=== PATIENT | female | born 1955 | race African-American/Black ===

== ENCOUNTER 2017-03-09 19:45 | Emergency (ER) | payer OTHER ==
[2017-03-09 20:25] VITALS: BP 138/81; PULSE 86; TEMP 98.6; BMI 35.5
[2017-03-09] MEDS ORDERED: diazePAM 5 MG TABLET PO ONE (20:59)
[2017-03-09] MEDS ORDERED: diazePAM 5 MG TABLET ONE (21:00)
--- NOTE | 2017-03-09 21:21 | PDOC ---
History of Present Illness - General Chief Complaint: Psychiatric Stated Complaint: ANXIETY ATTACK Time Seen by Provider: 03/09/17 20:58 History Source: Patient Exam Limitations: No Limitations - History of Present Illness Initial Comments: 03/09/17 20:53 61-year-old female presents to the ED with complaints of increased anxiety secondary to her TMJ. Patient states was diagnosed earlier this year with TMJ had a retainer that she is supposed to be wearing at night secondary to severe grinding which she states does not feel comfortable wearing and now requires prosthetic teeth to her back molars. Patient states took 0.25 of Xanax secondary to anxiety and although she is able to move her jaw slightly it causes discomfort. Patient has a follow-up appointment with the dentist next week. Timing/Duration: intermittent Severity: mild Associated Symptoms: reports: denies symptoms Past History - Past Medical History Allergies/Adverse Reactions: Allergies Allergy/AdvReac Type Severity Reaction Status Date / Time naproxen [From Naprosyn] AdvReac Mild Vomiting Verified 03/09/17 20:25 Home Medications: Ambulatory Orders Levothyroxine [Synthroid -] 125 mcg PO DAILY 01/07/14 Rosuvastatin Calcium [Crestor] 20 mg PO HS 01/07/14 Nebivolol HCl [Bystolic] 10 mg PO DAILY 07/13/15 Zolpidem Tartrate [Ambien] 10 mg PO HS 07/15/15 Fluoxetine HCl [Prozac] 20 mg PO DAILY 02/01/16 Anemia: No Asthma: No Cancer: No Cardiac Disorders: No CVA: No COPD: No CHF: No Dementia: No Diabetes: No GI Disorders: No Disorders: No HTN: No Hypercholesterolemia: Yes Liver Disease: No Psychiatric Problems: Yes Seizures: No Thyroid Disease: Yes - Surgical History Abdominal Surgery: No Appendectomy: No Cardiac Surgery: No Cholecystectomy: No Lung Surgery: No Neurologic Surgery: No Orthopedic Surgery: No - Psycho/Social/Smoking Cessation Hx Anxiety: Yes Suicidal Ideation: No Smoking Status: No Smoking History: Never smoked Have you smoked in the past 12 months: No Number of Cigarettes Smoked Daily: 0 If you are a former smoker, when did you quit?: 14 years ago Information on smoking cessation initiated: No Hx Alcohol Use: No Drug/Substance Use Hx: No Substance Use Type: None Hx Substance Use Treatment: No Patient Lives Alone: No Lives with/in: spouse/SO Review of Systems - Review of Systems Able to Perform ROS?: Yes Constitutional: No: Symptoms Reported HEENTM: Yes: Other Respiratory: No: Symptoms reported Cardiac (ROS): No: Symptoms Reported ABD/GI: No: Symptoms Reported : No: Symptoms Reported Musculoskeletal: No: Symptoms Reported Integumentary: No: Symptoms Reported Neurological: No: Symptoms reported Psychiatric: Yes: Anxiety *Physical Exam - Vital Signs Last Vital Signs Temp Pulse Resp BP Pulse Ox 98.6 F 86 18 138/81 100 03/09/17 20:21 03/09/17 20:21 03/09/17 20:21 03/09/17 20:21 03/09/17 20:21 - Physical Exam General Appearance: Yes: Nourished, Appropriately Dressed. No: Apparent Distress HEENT: positive: EOMI, DIANA, Other (Limited range of motion with lateral movement of lower mandible and full extension of lower mandible) Neck: positive: Supple. negative: Tender, Decreased range of motion Integumentary: positive: Normal Color, Warm, Moist Neurologic: positive: Motor Strength 5/5 (ambulatory) ED Treatment Course - Medications Given in the ED: ED Medications Discontinued Medications Generic Name Dose Route Start Last Admin Trade Name Freq PRN Reason Stop Dose Admin Diazepam 5 mg 03/09/17 20:59 03/09/17 21:02 Valium - PO 03/09/17 21:00 5 mg ONCE ONE Administration Medical Decision Making - Medical Decision Making 03/09/17 20:57 Patient with diagnosis of TMJ as per dentist who recommended she wear retainers throughout the day and at night but refuses to wear them. Patient states symptoms began this morning and worsened as the day went on. Patient states took that at prior to arrival which seemed to alleviate her symptoms slightly but not completely. Patient states responds well with muscle relaxers But has not home. Patient on exam had noted limited range of motion of lower mandible. Patient ordered for 5 mg of Valium and will reevaluate shortly. 03/09/17 21:49 Patient states feeling much better and able to open her mouth completely with full range of motion of mandible. Patient will be discharged home with Valium and told to wear her retainers. *DC/Admit/Observation/Transfer Diagnosis at time of Disposition: TMJ (temporomandibular joint disorder), Anxiety - Discharge Dispostion Disposition: HOME Condition at time of disposition: Improved - Referrals Referrals: Emery Scott MD [Primary Care Provider] - - Patient Instructions Printed Discharge Instructions: TMJ Syndrome (Alternative Therapy), DI for Temporomandibular Disorder Additional Instructions: I recommend that you keep Valium with you at all times if your symptoms get to the point that you're unable to move Jaw to prevent other symptoms such as anxiety. You do need to wear your retainers as recommended by the dentist and please follow-up as scheduled.
== END 2017-03-09 23:00 | disposition home or self-care (01) ==
LOC: JERFT 19:45 → SUPCPDRO 19:45 → JERFT 22:59
DX: M26.609 Unspecified temporomandibular joint disorder, unspecified side (principal); F41.9 Anxiety disorder, unspecified; E78.00 Pure hypercholesterolemia, unspecified
CPT/HCPCS: 99281-25

== ENCOUNTER 2017-05-04 17:08 | Emergency (ER) | payer OTHER ==
[2017-05-04 17:15] VITALS: BMI 32.3
--- NOTE | 2017-05-04 17:58 | PDOC ---
Attending Attestation - Resident Resident Name: Christiano Abbasi - ED Attending Attestation I have performed the following: I have examined & evaluated the patient, The case was reviewed & discussed with the resident, I agree w/resident's findings & plan, Exceptions are as noted - HPI HPI: 61 yo F history carpal tunnel syndrome, anxiety, TMJ presents with exacerbation of her TMJ as well as pain and numbness in her hands. She states that the numbness was similar to her carpal tunnel symptoms in the past (she was diagnosed in one hand in the past, was supposed to follow up outpatient recently for symptoms bilaterally now). She also states that she developed cramping in her hands today, noticed that they looked like claws temporarily. She is uncertain if she was hyperventilating at the time, but felt anxious. She has also recently had TMJ symptoms. - Physicial Exam PE: GENERAL: Awake, alert, and fully oriented, in no acute distress HEAD: No signs of trauma EYES: PERRLA, EOMI, sclera anicteric, conjunctiva clear ENT: Auricles normal inspection, hearing grossly normal, nares patent, oropharynx clear without exudates. Moist mucosa NECK: Normal ROM, supple, no lymphadenopathy, JVD, or masses LUNGS: Breath sounds equal, clear to auscultation bilaterally. No wheezes, and no crackles HEART: Regular rate and rhythm, normal S1 and S2, no murmurs, rubs or gallops ABDOMEN: Soft, nontender, normoactive bowel sounds. No guarding, no rebound. No masses EXTREMITIES: Normal range of motion, no edema. No clubbing or cyanosis. No cords, erythema, or tenderness NEUROLOGICAL: Cranial nerves II through XII grossly intact. Normal speech, normal gait. Motor intact. Sensation to pinprick intact B/L. SKIN: Warm, Dry, normal turgor, no rashes or lesions noted. - Medical Decision Making Pt reassured, encouraged to f/u with ortho for her carpal tunnels. Labs sent to check Ca and K.
--- NOTE | 2017-05-04 18:47 | PDOC ---
History of Present Illness - General Chief Complaint: CVA/TIA Stated Complaint: NUMBNESS TO BOTH HANDS Time Seen by Provider: 05/04/17 17:33 - History of Present Illness Initial Comments: 05/04/17 18:42 Ms. Jaffe is a 61 year old female with a significant past medical history of carpal tunnel syndrome, anxiety, and TMJ who presents to the emergency department with a 2 week history of tingling in both of her hands. The patient denies chest pain, shortness of breath, headache and dizziness. Denies fever, chills, nausea, vomit, diarrhea and constipation. Denies dysuria, frequency, urgency and hematuria. Allergies: Naproxen Past surgical history: Social history: Denies alcohol / tobacco PMD - Emery Scott 05/04/17 18:45 Past History - Past Medical History Allergies/Adverse Reactions: Allergies Allergy/AdvReac Type Severity Reaction Status Date / Time naproxen [From Naprosyn] AdvReac Mild Vomiting Verified 05/04/17 17:10 Home Medications: Ambulatory Orders Levothyroxine [Synthroid -] 125 mcg PO DAILY 01/07/14 Rosuvastatin Calcium [Crestor] 20 mg PO HS 01/07/14 Nebivolol HCl [Bystolic] 20 mg PO DAILY 07/13/15 Zolpidem Tartrate [Ambien] 10 mg PO HS 07/15/15 Alprazolam [Xanax] 0.5 mg PO PRN 05/04/17 Cyclobenzaprine HCl [Flexeril -] 10 mg PO PRN 05/04/17 Anemia: No Asthma: No Cancer: No Cardiac Disorders: No CVA: No COPD: No CHF: No Dementia: No Diabetes: No GI Disorders: No Disorders: No HTN: Yes Hypercholesterolemia: Yes Liver Disease: No Psychiatric Problems: Yes (anxiety) Seizures: No Thyroid Disease: Yes - Surgical History Abdominal Surgery: No Appendectomy: No Cardiac Surgery: No Cholecystectomy: No Lung Surgery: No Neurologic Surgery: No Orthopedic Surgery: No - Immunization History Immunization Up to Date: Yes - Psycho/Social/Smoking Cessation Hx Anxiety: Yes Suicidal Ideation: No Smoking Status: No Smoking History: Former smoker Have you smoked in the past 12 months: No Number of Cigarettes Smoked Daily: 0 If you are a former smoker, when did you quit?: 14 years ago Information on smoking cessation initiated: No Hx Alcohol Use: No Drug/Substance Use Hx: No Substance Use Type: None Hx Substance Use Treatment: No Review of Systems - Review of Systems Comments:: 05/04/17 18:42 GENERAL/CONSTITUTIONAL: No fever or chills. No weakness. HEAD, EYES, EARS, NOSE AND THROAT: No change in vision. No ear pain or discharge. No sore throat. CARDIOVASCULAR: No chest pain or shortness of breath RESPIRATORY: No cough, wheezing, or hemoptysis. GASTROINTESTINAL: No nausea, vomiting, diarrhea or constipation. GENITOURINARY: No dysuria, frequency, or change in urination. MUSCULOSKELETAL: +Tingling in both hands reported for 2 weeks. No joint or muscle swelling or pain. No neck or back pain. SKIN: No rash NEUROLOGIC: No headache, vertigo, loss of consciousness, or change in strength/ sensation. ENDOCRINE: No increased thirst. No abnormal weight change HEMATOLOGIC/LYMPHATIC: No anemia, easy bleeding, or history of blood clots. ALLERGIC/IMMUNOLOGIC: No hives or skin allergy. *Physical Exam - Vital Signs Last Vital Signs Temp Pulse Resp BP Pulse Ox 98.4 F 80 18 152/80 98 05/04/17 17:10 05/04/17 17:10 05/04/17 17:10 05/04/17 17:10 05/04/17 17:10 - Physical Exam Comments: 05/04/17 18:42 GENERAL: Awake, alert, and fully oriented, in no acute distress HEAD: No signs of trauma, normocephalic, atraumatic EYES: PERRLA, EOMI, sclera anicteric, conjunctiva clear ENT: Auricles normal inspection, hearing grossly normal, nares patent, oropharynx clear without exudates. Moist mucosa NECK: Normal ROM, supple, no lymphadenopathy, JVD, or masses LUNGS: No distress, speaks full sentences, clear to auscultation bilaterally HEART: Regular rate and rhythm, normal S1 and S2, no murmurs, rubs or gallops, peripheral pulses normal and equal bilaterally. ABDOMEN: Soft, nontender, normoactive bowel sounds. No guarding, no rebound. No masses EXTREMITIES: +Positive phalen's GERMAN. Normal inspection, Normal range of motion, no edema. No clubbing or cyanosis. NEUROLOGICAL: Cranial nerves II through XII grossly intact. Normal speech, normal gait, no focal sensorimotor deficits SKIN: Warm, Dry, normal turgor, no rashes or lesions noted. ED Treatment Course - LABORATORY CBC & Chemistry Diagram: 05/04/17 18:12 Medical Decision Making - Medical Decision Making 05/04/17 18:47 Ms. Jaffe presents with bilateral tingling of each hand. Has had carpal tunnel in the past and was previously scheduled for confirmatory testing last week (which she had to miss). Incidentally on further questioning she reported recent cramping. Will draw electrolytes to watch for K abnormality but otherwise will reassure and d/c to home for f/u care w/ PCP. 05/04/17 19:21 Patient signed off to Dr. Alvarado. *DC/Admit/Observation/Transfer Diagnosis at time of Disposition: Carpal tunnel syndrome Qualifiers: Laterality: bilateral Qualified Code(s): G56.03 - Carpal tunnel syndrome, bilateral upper limbs - Patient Instructions Printed Discharge Instructions: DI for Carpal Tunnel Syndrome - Attestations Physician Attestion: 05/04/17 19:21 I, Dr. Christiano Abbasi, attest that this document has been prepared under my direction and personally reviewed by me in its entirety. I further attest, that it accurately reflects all work, treatment, procedures and medical decision -making performed by me.
[2017-05-04 19:54] LABS: ANION GAP 7 (8-16); CALCIUM 9.1 mg/dL (8.5-10.1); CO2 25 mmol/L (21-32); GLUCOSE,RANDOM 97 mg/dL (74-106)
[2017-05-04 20:33] VITALS: BP 108/68; PULSE 64; TEMP 98
--- NOTE | 2017-05-04 21:15 | PDOC ---
*Physical Exam - Vital Signs Last Vital Signs Temp Pulse Resp BP Pulse Ox 98 F 64 18 108/68 97 05/04/17 20:33 05/04/17 20:33 05/04/17 20:33 05/04/17 20:33 05/04/17 20:33 ED Treatment Course - LABORATORY CBC & Chemistry Diagram: 05/04/17 18:12 - ADDITIONAL ORDERS Additional order review: Laboratory Results 05/04/17 05/04/17 18:12 18:12 Sodium 141 Potassium 4.0 Chloride 109 H Carbon Dioxide 25 Anion Gap 7 L BUN 15 Creatinine 1.0 Random Glucose 97 Calcium 9.1 Magnesium 2.5 H D Progress Note - Progress Note Progress Note: 61 yo F with h/o anxiety, TMJ, and carpal tunnel who presents with BL hand tingling. Pt. reports 2 weeks of tingling in both hands. Denies any weakness of extremities, back pain, neck pain, fever/chills, N/V, SOB, chest pain or any other associated symptoms. Denies any new medications, or trauma to back/neck, repetitive straining or lifting. Medical Decision Making - Medical Decision Making 05/04/17 21:18 61 yo F with h/o anxiety, TMJ, and BL carpal tunnel presents with BL hand tingling. Experiencing BL hand tingling for the past 2 weeks . Denies weakness or extremities or associated symptoms. Received hand off from Dr. Abbasi, DDx: Carpal Tunnel, electrolyte deficiency, neuropathy ED Course: CMP: Unremarkable CBC: Unremarkable Magnesium: 2.5 *DC/Admit/Observation/Transfer Diagnosis at time of Disposition: Carpal tunnel syndrome Qualifiers: Laterality: bilateral Qualified Code(s): G56.03 - Carpal tunnel syndrome, bilateral upper limbs - Discharge Dispostion Admit: No - Prescriptions Prescriptions: Pregabalin [Lyrica -] 25 mg PO TID #21 capsule MDD 75 - Referrals Referrals: Emery Scott MD [Primary Care Provider] - - Patient Instructions Printed Discharge Instructions: DI for Carpal Tunnel Syndrome Additional Instructions: Your labs were all normal and if you continue to experience tingling in fingers please follow up with your PCP. Print Language: ARABIC - Post Discharge Activity - Attestations Physician Attestion: 05/04/17 21:22 I, Dr. Jurgen Alvarado, attest that this document has been prepared under my direction and personally reviewed by me in its entirety. I further attest, that it accurately reflects all work, treatment, procedures and medical decision -making performed by me.
[2017-05-04] MEDS ORDERED: KETOROLAC TROMETHAMINE 60 MG/2 ML VIAL IM ONE (21:35)
[2017-05-04] MEDS ORDERED: PREGABALIN 100 MG CAPSULE PO ONE (21:37)
[2017-05-04] MEDS ORDERED: PREGABALIN 100 MG CAPSULE ONE (21:39)
== END 2017-05-04 21:45 | disposition home or self-care (01) ==
LOC: JER 17:08
PROC: 3E0233Z Introduction of Anti-inflammatory into Muscle, Percutaneous Approach (ICD-10-PCS; principal; 2017-05-04)
DX: G56.03 Carpal tunnel syndrome, bilateral upper limbs (principal); I10 Essential (primary) hypertension; F41.9 Anxiety disorder, unspecified; E78.00 Pure hypercholesterolemia, unspecified; Z87.891 Personal history of nicotine dependence; Z88.6 Allergy status to analgesic agent
CPT/HCPCS: 36415; 80048; 83735; 99285-25

== ENCOUNTER 2017-06-28 08:58 | Emergency (ER) | payer OTHER ==
[2017-06-28 09:03] VITALS: BP 155/95; PULSE 69; TEMP 98.7; BMI 35.5
[2017-06-28] MEDS ORDERED: KETOROLAC TROMETHAMINE 60 MG/2 ML VIAL IM ONE (09:30)
[2017-06-28] MEDS ORDERED: KETOROLAC TROMETHAMINE 60 MG/2 ML VIAL ONE (09:33)
--- NOTE | 2017-06-28 09:52 | PDOC ---
History of Present Illness - General Chief Complaint: Pain Stated Complaint: RT WRIST PAIN Time Seen by Provider: 06/28/17 09:23 - History of Present Illness Initial Comments: 06/28/17 09:44 CHIEF COMPLAINT: arm pain HISTORY OF PRESENT ILLNESS: 61 yo F with hx of HLD, hypothyroidism and anxiety c /o of right forearm pain s/p "nerve test" last week. Patient denies any recent injury or trauma but states the pain has lasted for weeks and she has seen multiple doctors for it. Patient states she took ibuprofen last night with minimal relief. She reports the pain as a shooting pain to R arm that started yesterday while using computer. Patient reports that she was tested for carpal tunnel and "that was not it, that's why I'm here, because it still hurts." Patient is concerned it is "maybe bruised and swollen" and that "maybe I have a blood clot." Denies any use of OCP, recent travel. PAST MEDICAL HISTORY: Denies past medical history FAMILY HISTORY: Denies SOCIAL HISTORY: Denies tobacco, alcohol, illicit drug use. SURGICAL HISTORY: Denies ALLERGIES: No known drug allergies REVIEW OF SYSTEMS General/Constitutional: Denies fever or chills. Denies weakness, weight change. HEENT: Denies change in vision. Denies ear pain or discharge. Denies sore throat. Cardiovascular: Denies chest pain or shortness of breath. Respiratory: Denies cough, wheezing, or hemoptysis. Gastrointestinal: Denies nausea, vomiting, diarrhea or constipation. Denies rectal bleeding. Genitourinary: Denies dysuria, frequency, or change in urination. Musculoskeletal: Intermittent shooting pain to left arm. Skin: "I think i see some bruising and maybe a little swelling on my arm." PHYSICAL EXAM General Appearance: Well-appearing, appropriately dressed. No apparent distress. HEENT: EOMI, PERRLA. No conjunctival pallor. No photophobia, scleral icterus. Respiratory/Chest: Lungs CTAB. Cardiovascular: RRR. S1, S2. Vascular Pulses: Dorsalis-Pedis (R): 2+, Dorsalis-Pedis (L): 2+ Musculoskeletal/Extremities: TTP to medial aspect of R forearm. Normal inspection. FROM of all extremities, normal capillary refill. Pelvis Stable. No CVA tenderness. No tenderness to extremities, pedal edema, swelling, erythema or deformity. Integumentary: Appropriate color, dry, warm. No cyanosis, erythema, jaundice or rash Neurologic: semiconductor lab technician II-XII intact. Fully oriented, alert. Appropriate mood/affect. Motor strength 5/5. No appreciable EOM palsy, facial droop or sensory deficit. Past History - Past Medical History Allergies/Adverse Reactions: Allergies Allergy/AdvReac Type Severity Reaction Status Date / Time naproxen [From Naprosyn] AdvReac Mild Vomiting Verified 06/28/17 09:00 Home Medications: Ambulatory Orders Levothyroxine [Synthroid -] 125 mcg PO DAILY 01/07/14 Rosuvastatin Calcium [Crestor] 20 mg PO HS 01/07/14 Nebivolol HCl [Bystolic] 20 mg PO DAILY 07/13/15 Zolpidem Tartrate [Ambien] 10 mg PO HS 07/15/15 Alprazolam [Xanax] 0.5 mg PO PRN 05/04/17 Cyclobenzaprine HCl [Flexeril -] 10 mg PO PRN 05/04/17 Pregabalin [Lyrica -] 25 mg PO TID #21 capsule MDD 75 05/04/17 Acetaminophen [Tylenol -] 650 mg PO Q6H PRN #40 tablet 06/28/17 Anemia: No Asthma: No Cancer: No Cardiac Disorders: No CVA: No COPD: No CHF: No Dementia: No Diabetes: No GI Disorders: No Disorders: No HTN: Yes Hypercholesterolemia: Yes Liver Disease: No Psychiatric Problems: Yes (anxiety) Seizures: No Thyroid Disease: Yes - Surgical History Abdominal Surgery: No Appendectomy: No Cardiac Surgery: No Cholecystectomy: No Lung Surgery: No Neurologic Surgery: No Orthopedic Surgery: No - Immunization History Immunization Up to Date: Yes - Suicide/Smoking/Psychosocial Hx Smoking Status: No Smoking History: Never smoked Have you smoked in the past 12 months: No Number of Cigarettes Smoked Daily: 0 If you are a former smoker, when did you quit?: 14 years ago Information on smoking cessation initiated: No Hx Alcohol Use: No Drug/Substance Use Hx: No Substance Use Type: None Hx Substance Use Treatment: No *Physical Exam - Vital Signs Last Vital Signs Temp Pulse Resp BP Pulse Ox 98.7 F 69 20 155/95 98 06/28/17 09:00 06/28/17 09:00 06/28/17 09:00 06/28/17 09:00 06/28/17 09:00 ED Treatment Course - RADIOLOGY Radiology Studies Ordered: Category Date Time Status DUPLEX VASCUL US-1 ARM [US] Stat Ultrasound 06/28/17 09:30 Ordered - Medications Given in the ED: ED Medications Discontinued Medications Generic Name Dose Route Start Last Admin Trade Name Freq PRN Reason Stop Dose Admin Ketorolac Tromethamine 60 mg 06/28/17 09:30 06/28/17 09:36 Toradol Injection - IM 06/28/17 09:31 60 mg ONCE ONE Administration Medical Decision Making - Medical Decision Making 06/28/17 09:52 61 yo F with hx of HLD, hypothyroidism, anxiety c/o of right forearm pain s/p "nerve test" last week. toradol us r/o dvt 06/28/17 10:59 US negative for DVT. Tylenol rx sent to pharm -sling placed Advised patient to f/u with neurologist who did "nerve test" for further evaluation and possible medication regimen for neuropathy. Patient verbalized understanding and agrees to plan. *DC/Admit/Observation/Transfer Diagnosis at time of Disposition: Arm pain Qualifiers: Laterality: right Qualified Code(s): M79.601 - Pain in right arm - Discharge Dispostion Disposition: HOME Condition at time of disposition: Stable Admit: No - Prescriptions Prescriptions: Acetaminophen [Tylenol -] 650 mg PO Q6H PRN #40 tablet PRN Reason: Pain - Referrals Referrals: Emery Scott MD [Primary Care Provider] - Dexter Barron MD [Staff Physician] - - Patient Instructions Printed Discharge Instructions: DI for Arm Pain, How To Perform RICE (Rest, Ice , Compress, Elevate) Additional Instructions: You have no blood clots in your arm. Please take medication as prescribed and follow up with your neurologist and orthopedics for further evaluation of your arm pain. If you develop any new or worsening symptoms, please return to the ER.
== END 2017-06-28 11:19 | disposition home or self-care (01) ==
LOC: JERFT 08:58
PROC: 3E0233Z Introduction of Anti-inflammatory into Muscle, Percutaneous Approach (ICD-10-PCS; principal; 2017-06-28)
DX: M79.601 Pain in right arm (principal); E78.5 Hyperlipidemia, unspecified; E03.9 Hypothyroidism, unspecified; F41.9 Anxiety disorder, unspecified
CPT/HCPCS: 93971; 99281-25

== ENCOUNTER 2018-02-17 13:00 | Emergency (ER) | payer OTHER ==
[2018-02-17 13:09] VITALS: BMI 35.2
[2018-02-17] MEDS ORDERED: diazePAM CARPU-JECT 10 MG/2 ML DISP.SYRIN IVPUSH ONE (13:44)
--- NOTE | 2018-02-17 13:49 | PDOC ---
History of Present Illness - General Chief Complaint: Pain Stated Complaint: FACE NUMBNESS Time Seen by Provider: 02/17/18 13:36 History Source: Patient Exam Limitations: No Limitations - History of Present Illness Initial Comments: CHIEF COMPLAINT: 62 y/o afebrile female with PMH HTN, HLD, TMJ, hypothyroidism , anxiety c/o left sided facial numbness and left arm tingling since last night. HISTORY OF PRESENT ILLNESS: The patient states that approximately 16 hours ago (last night) she had an anxiety attack at home. She states after that her TMJ flared up on the left side of her face along with left sided facial numbness. She states she went to bed and woke up with continued left sided facial numbness and left arm tingling. She states the TMJ is preventing her from speaking words easily. She denies AVILES, changes in vision/hearing, neck pain, n/v /d, CP, SOB, abd pain, back pain, hematuria, dysuria, neck pain. She did not take anything for the TMJ symptoms. PMD is Dr. Emery Scott Vital signs on arrival are within normal limits. REVIEW OF SYSTEMS: GENERAL/CONSTITUTIONAL: No fever/chills. No weakness. No weight change. HEAD, EYES, EARS, NOSE AND THROAT: +left facial numbness and left sided TMJ. No change in vision. No ear pain or discharge. No sore throat. CARDIOVASCULAR: No chest pain or shortness of breath. RESPIRATORY: No cough, wheezing, or hemoptysis. GASTROINTESTINAL: No abd pain, nausea, vomiting, diarrhea. GENITOURINARY: No dysuria, frequency, or change in urination. MUSCULOSKELETAL: +left arm heaviness and tingling. No neck or back pain. SKIN: No rash or easy bruising. NEUROLOGIC: No headache, vertigo, loss of consciousness, or loss of sensation. PHYSICAL EXAM: GENERAL: The patient is awake, alert, and fully oriented, in no acute distress. HEAD: Normal with no signs of trauma. NECK: No midline or paraspinous TTP of neck. No step offs. ENT: Pupils equal, round and reactive to light, extraocular movements intact, sclera anicteric, conjunctiva clear. LUNGS: Clear to auscultation bilaterally. Normal excursion. No respiratory distress or use of accessory muscles. CV: RRR, S1/S2, no MRG. Cap refill < 2 sec. ABDOMEN: Soft, non-distended, non-tender even to deep palpation, no hepatomegaly or splenomegaly, no masses. EXTREMITIES: Normal range of motion, no edema. NEUROLOGICAL: Speech difficult secondary to TMJ, normal gait. CN II-XII grossly intact. Normal finger to nose. Normal rapid alternating movements. A&Ox4. Strength equal b/l UEs and b/l LEs. Equal cw operator strength b/l. No slurred speech. Left sided cheek droop with TTP of left TMJ. PSYCH: Normal mood, normal affect. Sensation less in left maxillary region of face and on left forearm as compared to right. SKIN: Warm, dry, normal turgor, no rashes or lesions noted. NIH Stroke Scale - Last Known Well Date/Time & Onset Date Last Known Well: 02/16/18 Time Last Known Well: 20:00 - Initial Evaluation Level of consciousness: Alert Ask patient the month and their age: Answers both correctly Ask patient to open & close eyes; make fist and let go: Obeys both correctly Best gaze (horizontal eye movement): Normal Visual field testing: No visual field loss Facial paresis (Show teeth/raise eyebrows/close eyes tight): Minor paralysis ( flattened nasolabial fold, asymmetry on smiling) Motor Function: Left Arm: Normal Motor Function: Right Arm: Normal (extends arm 90 (or 45) degrees for 10 seconds without drift Motor Function: Left Leg: Normal (extends leg 30 degrees for 5 seconds without drift) Motor Function: Right Leg: Normal (extends leg 30 degrees for 5 seconds without drift) Limb Ataxia: No ataxia Sensory(Use pinprick test arms,legs,trunk,face/side to side): Mild to moderate decrease in sensation Best language (Describe picture, name items, read sentences): No Aphasia Dysarthria (read several words): Normal articulation Extinction and Inattention: No abnormality - Total Score NIH Stroke Scale Score: 2 Past History - Past Medical History Allergies/Adverse Reactions: Allergies Allergy/AdvReac Type Severity Reaction Status Date / Time naproxen [From Naprosyn] AdvReac Mild Vomiting Verified 02/17/18 13:08 Home Medications: Ambulatory Orders Levothyroxine [Synthroid -] 125 mcg PO DAILY 01/07/14 Rosuvastatin Calcium [Crestor] 20 mg PO HS 04/09/14 Nebivolol HCl [Bystolic] 20 mg PO DAILY 07/13/15 Zolpidem Tartrate [Ambien] 10 mg PO HS 07/15/15 Alprazolam [Xanax] 0.5 mg PO PRN 05/04/17 Cyclobenzaprine HCl [Flexeril -] 10 mg PO PRN 05/04/17 Pregabalin [Lyrica -] 25 mg PO TID #21 capsule MDD 75 05/04/17 Cyclobenzaprine HCl [Flexeril -] 10 mg PO PRN #10 tablet 02/17/18 Anemia: No Asthma: No Cancer: No Cardiac Disorders: No CVA: No COPD: No CHF: No Dementia: No Diabetes: No GI Disorders: No Disorders: No HTN: Yes Hypercholesterolemia: Yes Liver Disease: No Psychiatric Problems: Yes (anxiety) Seizures: No Thyroid Disease: Yes - Surgical History Abdominal Surgery: No Appendectomy: No Cardiac Surgery: No Cholecystectomy: No Lung Surgery: No Neurologic Surgery: No Orthopedic Surgery: No - Immunization History Immunization Up to Date: Yes - Suicide/Smoking/Psychosocial Hx Smoking Status: No Smoking History: Never smoked Have you smoked in the past 12 months: No Number of Cigarettes Smoked Daily: 0 If you are a former smoker, when did you quit?: 14 years ago Hx Alcohol Use: No Drug/Substance Use Hx: No Substance Use Type: None Hx Substance Use Treatment: No *Physical Exam - Vital Signs Last Vital Signs Temp Pulse Resp BP Pulse Ox 98.8 F 75 18 112/67 99 02/17/18 13:05 02/17/18 13:05 02/17/18 13:05 02/17/18 13:05 02/17/18 13:05 Heart Score/ECG Review - ECG Intrepretation Comment:: Twelve-lead EKG was performed and reviewed by Dr. Wang. There is normal sinus rhythm with a normal rate. The axis is normal. The intervals are normal. There are no ST or T wave abnormalities. Impression: Normal twelve-lead EKG ED Treatment Course - LABORATORY CBC & Chemistry Diagram: 02/17/18 13:58 02/17/18 13:58 Medical Decision Making - Medical Decision Making A/p: 62 y/o female with left sided facial numbness and left arm tingling since last night. Plan is as follows: 1. Labs 2. EKG 3. Head CT 4. IV valium 5. Reassess No code singh called as patient has had symptoms > [address] IMPRESSION: No bleed, mass or fracture. No evidence of acute infarct EKG normal Labs unremarkable. *DC/Admit/Observation/Transfer Diagnosis at time of Disposition: TMJ (temporomandibular joint disorder), Left facial numbness - Discharge Dispostion Disposition: HOME Condition at time of disposition: Improved - Referrals Referrals: Emery Scott MD [Primary Care Provider] - - Patient Instructions Printed Discharge Instructions: DI for Temporomandibular Disorder, DI for Numbness/tingling Additional Instructions: Discharge Instructions: -The cat scan of your head was normal -Your symptoms are most likely a flare up of TMJ -A prescription for a muscle relaxer has been sent to your pharmacy; it may cause drowsiness -Follow up with your doctor within 2 weeks -Return to the ER with any worsening or concerning symptoms - Post Discharge Activity
[2018-02-17 14:31] LABS: BASO % 1.8 % (0-2.0); EOS % 2.6 % (0-4.5); HEMATOCRIT 39.9 % (32.4-45.2); HEMOGLOBIN 12.9 GM/dL (10.7-15.3); LYMPH % 23.7 % (8-40); MCH 29.5 pg (25.7-33.7); MCHC 32.2 g/dl (32.0-36.0); MEAN CELL VOLUME 91.4 fl (80-96); MEAN PLT VOLUME 9.4 fl (7.5-11.1); MONO % 12.8 % (3.8-10.2); NEUT % 59.1 % (42.8-82.8); PLATELET COUNT 209 K/MM3 (134-434); RBC 4.37 M/mm3 (3.60-5.2); RDW 13.7 % (11.6-15.6); WHITE BLOOD COUNT 4.8 K/mm3 (4.0-10.0)
[2018-02-17] MEDS ORDERED: diazePAM 5 MG TABLET PO ONE (14:39)
[2018-02-17] MEDS ORDERED: diazePAM 5 MG TABLET ONE (14:52)
[2018-02-17 14:57] LABS: ALBUMIN 3.8 g/dl (3.4-5.0); ANION GAP 3 (8-16); BLOOD UREA NITROGEN 17 mg/dL (7-18); CALCIUM 8.6 mg/dL (8.5-10.1); CHLORIDE 113 mmol/L (98-107); CO2 30 mmol/L (21-32); CREATININE 1.1 mg/dL (0.55-1.02); GLUCOSE,RANDOM 94 mg/dL (74-106); POTASSIUM 3.8 mmol/L (3.5-5.1); SGOT/AST 10 U/L (15-37); SGPT/ALT 16 U/L (12-78); SODIUM 146 mmol/L (136-145)
[2018-02-17 15:00] LABS: ALK PHOS 93 U/L (45-117); BILIRUBIN,TOTAL 0.3 mg/dL (0.2-1.0); TOT PROT 6.9 g/dl (6.4-8.2)
[2018-02-17 15:15] LABS: INR 1.08 (0.82-1.09); PROTHROMBIN TIME (PATIENT) 12.2 SEC (9.7-13.0)
[2018-02-17 17:36] VITALS: BP 115/75; PULSE 81; TEMP 98.5
--- NOTE | 2018-02-18 23:56 | EKG ---
Test Reason : Blood Pressure : / mmHG Vent. Rate : 063 BPM Atrial Rate : 063 BPM P-R Int : 202 ms QRS Dur : 086 ms QT Int : 400 ms P-R-T Axes : 037 -02 060 degrees QTc Int : 409 ms NORMAL SINUS RHYTHM NORMAL ECG WHEN COMPARED WITH ECG OF 13-JUL-2015 11:34, NO SIGNIFICANT CHANGE WAS FOUND Confirmed by PARISH SÁNCHEZ MD ([id number]) on 02/18/2018 11:55:53 PM Referred By: Confirmed By:PARISH SÁNCHEZ MD
== END 2018-02-17 17:36 | disposition home or self-care (01) ==
LOC: JER 13:00
DX: M26.69 Other specified disorders of temporomandibular joint (principal); I10 Essential (primary) hypertension; E03.9 Hypothyroidism, unspecified; E78.5 Hyperlipidemia, unspecified; E78.00 Pure hypercholesterolemia, unspecified; F41.9 Anxiety disorder, unspecified; Z87.891 Personal history of nicotine dependence
CPT/HCPCS: 36415; 70450-TC; 80053; 82550; 84484; 85025; 85610; 93005; 93010; 99284-25

== ENCOUNTER 2022-01-21 07:47 | Emergency (ER) | payer MEDICARE, OTHER ==
[2022-01-21 08:03] VITALS: BP 138/71; PULSE 63; TEMP 98.1; BMI 37.4
[2022-01-21] MEDS ORDERED: ACETAMINOPHEN 500 MG TABLET (FP) PO ONE (08:59)
[2022-01-21] MEDS ORDERED: ACETAMINOPHEN 500 MG TABLET (FP) ONE (09:04)
== END 2022-01-21 09:22 | disposition home or self-care (01) ==
LOC: JERFT 07:47 → JER 07:47 → JERFT 09:22
DX: F41.9 Anxiety disorder, unspecified (principal)
CPT/HCPCS: 99283-25

== ENCOUNTER 2022-04-28 22:13 | Inpatient (IN) | payer OTHER ==
[2022-04-28 23:05] VITALS: BMI 36.6
[2022-04-28] MEDS ORDERED: ONDANSETRON 4 MG/2 ML VIAL IVPUSH ONE (23:14)
[2022-04-28] MEDS ORDERED: MECLIZINE HCL 25 MG TABLET (FP) PO ONE (23:14)
[2022-04-28] MEDS ORDERED: SODIUM CHLORIDE 0.9% 500 ML INFUS.BAG IV ONE (23:38)
[2022-04-29] MEDS ORDERED: ONDANSETRON *ODT* 4 MG TABLET SL ONE (00:02)
[2022-04-29 01:28] LABS: BASO % 0.7 % (0-2.0); EOS % 0.5 % (0-4.5); HEMATOCRIT 40.5 % (32.4-45.2); HEMOGLOBIN 13.3 GM/dL (10.7-15.3); LYMPH % 13.6 % (8-40); MCH 29.3 pg (25.7-33.7); MCHC 32.9 g/dl (32.0-36.0); MEAN CELL VOLUME 89.1 fl (80-96); MEAN PLT VOLUME 9.4 fl (7.5-11.1); MONO % 7.2 % (3.8-10.2); PLATELET COUNT 246 10^3/uL (134-434); RBC 4.55 M/mm3 (3.60-5.2); RDW 14.3 % (11.6-15.6); WHITE BLOOD COUNT 6.2 K/mm3 (4.0-10.0)
[2022-04-29 01:40] LABS: INR 1.12 (0.83-1.09); PROTHROMBIN TIME (PATIENT) 12.9 SEC (9.7-13.0)
[2022-04-29 01:43] LABS: ACTIVATED PTT 34.8 SECONDS (25.2-36.5)
[2022-04-29 01:53] LABS: CALCIUM 9.1 mg/dL (8.5-10.1)
[2022-04-29 01:54] LABS: ALBUMIN 3.8 g/dl (3.4-5.0); BLOOD UREA NITROGEN 15.6 mg/dL (7-18)
[2022-04-29 01:57] LABS: CREATININE 1.2 mg/dL (0.55-1.3)
[2022-04-29 01:59] LABS: BILIRUBIN,TOTAL 0.2 mg/dL (0.2-1); TOT PROT 7.3 g/dl (6.4-8.2)
[2022-04-29] MEDS ORDERED: MELATONIN 5 MG TABLETS PO ONE (04:01)
[2022-04-29] MEDS ORDERED: ACETAMINOPHEN 325 MG TABLET (FP) PO ONE (06:11)
[2022-04-29] MEDS ORDERED: ACETAMINOPHEN 325 MG TABLET (FP) ONE (06:36)
[2022-04-29] MEDS: busPIRone HCL 5 MG TABLET PO SCH ×2 (17:59→21:20)
[2022-04-30 08:06] LABS: BASO % 0.8 % (0-2.0); EOS % 2.1 % (0-4.5); HEMATOCRIT 41.2 % (32.4-45.2); HEMOGLOBIN 13.5 GM/dL (10.7-15.3); LYMPH % 26.3 % (8-40); MCH 29.5 pg (25.7-33.7); MCHC 32.8 g/dl (32.0-36.0); MEAN CELL VOLUME 89.7 fl (80-96); MEAN PLT VOLUME 9.5 fl (7.5-11.1); MONO % 8.6 % (3.8-10.2); NEUT % 62.2 % (42.8-82.8); PLATELET COUNT 231 10^3/uL (134-434); RBC 4.59 M/mm3 (3.60-5.2); RDW 13.8 % (11.6-15.6); WHITE BLOOD COUNT 5.6 K/mm3 (4.0-10.0)
[2022-04-30 08:29] LABS: CALCIUM 9.2 mg/dL (8.5-10.1)
[2022-04-30 08:30] LABS: ALBUMIN 3.8 g/dl (3.4-5.0); BLOOD UREA NITROGEN 13.7 mg/dL (7-18)
[2022-04-30 08:35] LABS: BILIRUBIN,TOTAL 0.4 mg/dL (0.2-1); TOT PROT 7.3 g/dl (6.4-8.2)
[2022-04-30] MEDS: busPIRone HCL 5 MG TABLET PO SCH ×2 (09:15→21:14)
[2022-04-30] MEDS ORDERED: LORazepam 2 MG/ML SDV VIAL IVPB ONE (09:36)
[2022-04-30] MEDS ORDERED: LORazepam 2 MG/ML SDV VIAL IVPUSH PRN (10:00)
[2022-04-30] MEDS ORDERED: MELATONIN 5 MG TABLETS PO ONE (20:15)
[2022-05-01] MEDS: busPIRone HCL 5 MG TABLET PO SCH ×2 (10:46→21:14)
[2022-05-01] MEDS ORDERED: MECLIZINE HCL 25 MG TABLET (FP) PO ONE (19:09)
[2022-05-01] MEDS: ASPIRIN 81 MG CHEWABLE TABLETS PO SCH (19:35)
[2022-05-01] MEDS ORDERED: MELATONIN 5 MG TABLETS PO SCH (22:00)
[2022-05-01] MEDS ORDERED: MECLIZINE HCL 25 MG TABLET (FP) PO PRN (22:25)
[2022-05-02] MEDS: busPIRone HCL 5 MG TABLET PO SCH (09:43)
[2022-05-02] MEDS: ASPIRIN 81 MG CHEWABLE TABLETS PO SCH (09:43)
[2022-05-02 16:21] VITALS: BP 112/62; PULSE 74; RESP 18; TEMP 97.8
[2022-05-02] MEDS ORDERED: ROSUVASTATIN CA 20 MG TABLET PO SCH (22:00)
== END 2022-05-02 18:48 | disposition home or self-care (01) | DRG 149 ==
LOC: JER 22:13 → JERBED 04-29 00:36 → OBSVTOIN 04-29 09:09 → MERGE 04-29 09:09 → J4S 04-29 15:27
PROVIDERS: ADMIT Internal Medicine; ATTEND Internal Medicine
DX: R42 Dizziness and giddiness (principal); E03.9 Hypothyroidism, unspecified; I10 Essential (primary) hypertension; E78.00 Pure hypercholesterolemia, unspecified; H66.90 Otitis media, unspecified, unspecified ear; E86.0 Dehydration; E87.8 Other disorders of electrolyte and fluid balance, not elsewhere classified; M54.2 Cervicalgia; M54.50 Low back pain, unspecified; F41.8 Other specified anxiety disorders; E66.9 Obesity, unspecified; Z68.36 Body mass index [BMI] 36.0-36.9, adult; R20.0 Anesthesia of skin
CPT/HCPCS: 36415; 70450-TC; 70544-TC; 70551-TC; 73560-TC-RT-FY; 80053; 84484; 85025; 85610; 85730; 93005; 93010; 97116-GP; 97162-GP; 99285-25; C9803-CS; G0378; Q0162; U0003; U0005

== ENCOUNTER 2025-06-15 08:18 | Emergency (ER) | payer OTHER ==
[2025-06-15 08:30] VITALS: BP 124/66; PULSE 93; RESP 18; TEMP 98; BMI 33.9
[2025-06-15] MEDS ORDERED: IBUPROFEN 600 MG TABLET (FP) PO ONE (08:50)
[2025-06-15] MEDS ORDERED: ACETAMINOPHEN 500 MG TABLET (FP) ONE (08:51)
[2025-06-15] MEDS: ACETAMINOPHEN 500 MG TABLET (FP) PO ONE (08:57)
[2025-06-15] MEDS: IBUPROFEN 400 MG TABLET (FP) PO ONE (08:57)
== END 2025-06-15 10:50 | disposition home or self-care (01) ==
LOC: JERFT 08:18
DX: M25.571 Pain in right ankle and joints of right foot (principal); X50.1XXA Overexertion from prolonged static or awkward postures, initial encounter; Y92.009 Unspecified place in unspecified non-institutional (private) residence as the place of occurrence of the external cause
CPT/HCPCS: 73610-TC-RT-FY; 73630-TC-RT-FY; 99283-25